=== PATIENT | male | born 1965 | race Caucasian/White ===

== ENCOUNTER 2024-02-20 23:55 | Emergency (ER) | payer OTHER, SELFPAY ==
[2024-02-21 00:01] VITALS: BP 166/92; PULSE 88; RESP 14; TEMP 36.2; O2SAT 98; BMI 32.6
--- NOTE | 2024-02-21 00:29 | ED_ITS ---
HPI - Back Pain/Injury General Chief Complaint: Back Pain/Injury Stated Complaint: left side back pain Time Seen by Provider: 02/21/24 00:29 Source: patient Mode of arrival: ambulatory Limitations: no limitations History of Present Illness ED Provider: yolis STEWART Narrative: Patient with no history of back problems or sciatic pain apparently was changing the tire and noticed pain in the left sciatic area radiating to the left lower extremity no motor weakness this happened about 4 days ago no back pain no previous similar pain Related Data Previous Rx's ?Medication ?Instructions ?Recorded cyclobenzaprine 10 mg tablet 10 mg PO Q8H #20 tabs 02/21/24 oxycodone 5 mg tablet 5 mg PO Q6H PRN pain #20 tabs 02/21/24 Allergies Allergy/AdvReac Type Severity Reaction Status Date / Time No Known Allergies Allergy Verified 02/21/24 00:02 Review of Systems Review of Systems: Yes all other systems are reviewed and are negative [facility] Social History Social History Smoked in Last 30 Days: No Use of substances other than those prescribed or required for medical reasons: No Advance Directives: No Advance Directives Information Provided: No Do you have a plan to hurt others: No Plan Physical Exam Vital Signs: Vital Signs: Last Vital Signs Temp 98.1 F 02/21/24 01:00 Pulse 75 02/21/24 01:00 Resp 16 02/21/24 01:00 BP 136/76 02/21/24 01:00 Pulse Ox 98 02/21/24 01:00 O2 Del Method Room Air 02/21/24 01:00 BMI result Body Mass Index 32.6 Appearance: Alert. Oriented X3. No acute distress. Eyes: PERRLA, No Nystagmus ENT: Pharynx normal. Oral Mucosa moist Neck: Normal inspection. Neck supple. CVS: Normal heart rate and rhythm. Pulses normal. Respiratory: No respiratory distress. Equal air entry bilateral, no wheezing/rales/rhonchi Abdomen: Soft and nontender. Bowel sounds are present, no mass palpable, no CVA tenderness Skin: Skin warm and dry. Normal skin color. Normal skin turgor. back no midline spinal tenderness SLR negative bilaterally Extremities: No lower extremity edema. No calf tenderness pace sign positive on the left side Neuro: Oriented X 3. No motor deficit. No sensory deficit Medications Administered Discontinued Medications Generic Name Dose Route Start Last Admin Trade Name Matthewq PRN Reason Stop Dose Admin Morphine Sulfate 15 mg 02/21/24 00:30 02/21/24 00:40 Morphine Sulfate Immed Release 15 Mg Tablet PO 02/21/24 00:31 15 mg ONCE ONE Administration Medical Decision Making Medical Decision Making [facility] Narrative: Patient has acute onset of left sciatic pain with no back problems in the past no focal tenderness likely piriformis syndrome will give some pain medication muscle relaxant advised piriformis exercises Discharge Plan Discharge Clinical Impression: Piriformis syndrome Patient Disposition: Home, Self-Care Instructions: Piriformis Syndrome (ED) Additional Instructions: Likely you have strain of piriformis muscle Piriformis stretch exercises as advised Continue muscle relaxant Take pain medication as prescribed Prescriptions: New cyclobenzaprine 10 mg tablet 10 mg PO Q8H Qty: 20 0RF oxycodone 5 mg tablet 5 mg PO Q6H PRN (Reason: pain) Qty: 20 0RF Rx Instructions: Partial Fill upon patient request. Interventions: ED Discharge Assessment Last Done: 02/21/24 01:00 Discharge Date/Time: 02/21/24 01:00 Print Language: [place]
[2024-02-21 00:37] VITALS: BP 136/76; PULSE 75; RESP 16; TEMP 36.7; O2SAT 98
[2024-02-21] MEDS: Morphine Sulfate Immed Release 15 MG TABLET PO (00:40)
[2024-02-21 01:00] VITALS: BP 136/76; PULSE 75; RESP 16; TEMP 36.7; O2SAT 98
== END 2024-02-21 01:00 | disposition home or self-care (01) ==
PROVIDERS: Emergency Provider Internal Medicine
DX: G57.02 Lesion of sciatic nerve, left lower limb (principal)
CPT/HCPCS: 99283; 99284